=== PATIENT | male | born 1990 | race Caucasian/White ===

== ENCOUNTER 2022-11-01 04:24 | Day surgery (SDC) | payer OTHER ==
[2022-11-01] VITALS (243 sets, daily range): BP systolic 72–142; BP diastolic 43–95
[~2022-11-01] VITALS: Ht 172.7 cm; Wt 97.5 kg
[2022-11-01 07:39] LABS: BASO% 0.6 % (0-3); EOS% 3.2 % (0-8); HEMATOCRIT 41.3 % (39.0-50.0); IMMATURE GRANULOCYTES 0.2 % (0.0-5.0); LYMPH% 33.7 % (15-41); MEAN CELL VOLUME 77.9 fL CALC (80.0-100.0); MEAN CORPUSCULAR HGB 26.4 pG CALC (26.0-32.0); MEAN CORPUSCULAR HGB CONC 33.9 g/dL CAL (32.0-36.0); MONO% 6.8 % (2-13); NEUT# 3.51 thou/uL (1.82-7.42); NEUT% 55.5 % (42-76); RED BLOOD COUNT 5.3 mill/uL (4.70-6.10); RED CELL DISTRI WIDTH 12.8 % (11.5-15.5)
[2022-11-01 07:59] LABS: ALBUMIN 4.4 g/dL (3.2-5.0); ALKALINE PHOSPHATASE 73 u/l (38-126); ANION GAP 14 (6-22 (CALC)); BILIRUBIN, TOTAL 0.8 mg/dL (0.2-1.3); BUN 15 mg/dL (9-20); BUN/CREATININE RATIO 16 (12-20 (CALC)); CARBON DIOXIDE 30 mmol/l (22-30); CHLORIDE 100 mmol/l (95-108); CREATININE 0.9 mg/dL (0.7-1.3); GFR FOR AFR.AMER. > 60 ML/MIN (>=60 (CALC)); GFR OTHER RACES > 60 ML/MIN (>=60 (CALC)); POTASSIUM 4.1 mmol/l (3.5-5.1); SGOT/AST 28 u/l (17-59); SODIUM 139 mmol/l (137-146); TOTAL PROTEIN 7.2 g/dL (6.3-8.2)
[2022-11-01] MEDS ORDERED: LEXAPRO10 MG PO (08:45)
[2022-11-01] MEDS ORDERED: KLONOPIN2 MG PO (14:31)
[2022-11-01] MEDS ORDERED: CLONIDINE0.1 MG PO (14:31)
[2022-11-01] MEDS ORDERED: NALTREXONE50 MG PO (14:31)
[2022-11-02 03:41] VITALS: BP 140/91
[2022-11-02 03:45] VITALS: BP 140/91
[2022-11-02 04:44] LABS: ALBUMIN 4.4 g/dL (3.2-5.0); ALKALINE PHOSPHATASE 69 u/l (38-126); BUN 12 mg/dL (9-20); BUN/CREATININE RATIO 15 (12-20 (CALC)); CHLORIDE 104 mmol/l (95-108); CREATININE 0.8 mg/dL (0.7-1.3); GFR FOR AFR.AMER. > 60 ML/MIN (>=60 (CALC)); GFR OTHER RACES > 60 ML/MIN (>=60 (CALC)); POTASSIUM 4.2 mmol/l (3.5-5.1); SGOT/AST 38 u/l (17-59); SODIUM 140 mmol/l (137-146); TOTAL PROTEIN 7.3 g/dL (6.3-8.2)
[2022-11-02 04:47] LABS: ANION GAP 17 (6-22 (CALC)); BILIRUBIN, TOTAL 1.2 mg/dL (0.2-1.3); CARBON DIOXIDE 23 mmol/l (22-30)
[2022-11-02 05:58] LABS: BASO% 0.3 % (0-3); HEMATOCRIT 40.1 % (39.0-50.0); IMMATURE GRANULOCYTES 0.4 % (0.0-5.0); LYMPH% 7.4 % (15-41); MEAN CORPUSCULAR HGB 26.9 pG CALC (26.0-32.0); MEAN CORPUSCULAR HGB CONC 34.9 g/dL CAL (32.0-36.0); MONO% 1.7 % (2-13); NEUT# 9.74 thou/uL (1.82-7.42); NEUT% 90.2 % (42-76); RED BLOOD COUNT 5.21 mill/uL (4.70-6.10); RED CELL DISTRI WIDTH 12.7 % (11.5-15.5)
[2022-11-02 07:37] VITALS: BP 116/69
[2022-11-02 08:35] VITALS: BP 116/69
== END 2022-11-02 15:26 | disposition home or self-care (01) | DRG 897 ==
LOC: ANR 04:24 → MS2 04:24 → ANR 09:00 → MS2 17:40 → ANR 11-02 15:26
PROVIDERS: ATTEND Anesthesiology Critical Care Medicine
DX: F11.20 Opioid dependence, uncomplicated (principal)
CPT/HCPCS: J2354; J3475